=== PATIENT | female | born 1955 | race Caucasian/White ===

== ENCOUNTER 2017-05-12 20:28 | Emergency (ER) | payer MEDICARE | END 2017-05-12 23:13 | disposition home or self-care (01) | LOC: D.ER 20:28 | DX: J40 Bronchitis, not specified as acute or chronic (principal); H61.22 Impacted cerumen, left ear ==

== ENCOUNTER 2017-06-02 17:26 | Emergency (ER) | payer MEDICARE ==
[2017-06-02 18:47] LABS: ALBUMIN 3.3 g/dL (3.4-5.0); ALKALINE PHOSPHATASE 87 U/L (46-116); ALT (SGPT) 30 U/L (10-68); BILIRUBIN - TOTAL 0.25 mg/dL (0.2-1.3); CALC OSMOLALITY 280 mosm/kg (275-300); CALCIUM 9.3 mg/dL (8.5-10.1); CARBON DIOXIDE 26.1 mmol/L (21.0-32.0); CHLORIDE - SERUM 100 mmol/L (98-107); CREATININE - SERUM 0.8 mg/dL (0.6-1.3); GLUCOSE 281 mg/dL (74-106); POTASSIUM - SERUM 3.7 mmol/L (3.5-5.1); PROTEIN - SERUM 7.2 g/dL (6.4-8.2); SODIUM 135 mmol/L (136-145); UREA NITROGEN 16 mg/dL (7-18); eGFR NON AFRICAN AMERICAN 77 mL/min (90-120)
[2017-06-02 18:49] LABS: HEMATOCRIT 43.3 % (36.0-48.0); HEMOGLOBIN 15.2 g/dL (12-16); LYMPHOCYTES 42.3 % (15-50); MCH 30.3 pg (26.0-34.0); MCHC 35.1 g/dL (31.0-37.0); MCV 86.4 fL (80.0-100.0); NEUTROPHILS 53.8 % (40-80); PLATELET COUNT 280 10x3/uL (130-400); RBC 5.01 10x6/uL (4.00-5.40); RDW 13.2 % (11.5-14.5); WBC 8.1 10x3/uL (4.8-10.8)
[2017-06-02 19:10] LABS: INR 0.92 (0.85-1.17)
[2017-06-02 19:11] LABS: APTT 24.5 SECONDS (22.8-39.4)
== END 2017-06-02 20:52 | disposition home or self-care (01) ==
LOC: D.ER 17:26
PROVIDERS: Emergency Medicine
DX: E11.65 Type 2 diabetes mellitus with hyperglycemia (principal); F17.200 Nicotine dependence, unspecified, uncomplicated

== ENCOUNTER 2017-10-06 10:51 | Outpatient (CLI) | payer MEDICARE ==
[~2017-10-06] VITALS: Ht 152.4 cm; Wt 75.0 kg
--- NOTE | ~2017-10-06 | OP ---
PATIENT NAME: CRISTIANO THAYER MEDICAL RECORD: [id number] :53 LOCATION:D.CAT ADMISSION DATE: SURGEON: BALBIR CANALES MD DATE OF OPERATION: 10/06/2017 PROCEDURE: Left heart catheterization, selective coronary angiography, right radial approach. CATHETERS: A radial sheath, Maximino catheter. The procedure was well tolerated. The patient was returned to vazquez. Sheath was removed. TR band was placed. FINDINGS: Left ventriculography in 30-degree POWELL view: Normal wall motion and normal systolic function. CORONARY ANATOMY: LEFT MAIN: Left main is free of disease. LAD: Free of disease in diagonal system. CIRCUMFLEX: Free of disease in the marginal system. RIGHT CORONARY ARTERY: Dominant artery, gives rise to PDA, free of disease. IMPRESSION: Normal LV systolic function and normal coronary anatomy. TRANSINT:[id number] Voice Confirmation ID: [id number] DOCUMENT ID: [id number] BALBIR CANALES MD at 1225 CC: [id number] DICTATION DATE: 10/06/17 1338 ANODE WORKER: 10/06/17 1454 DEP CLI 10/06/17 [place] [id number] [place] [id number]
--- NOTE | ~2017-10-06 | HEMODYNAMI ---
PATIENT:CRISTIANO THAYER MEDICAL RECORD: [id number] : 53 LOCATION:[facility] ADMISSION DATE: 10/06/17 Generatedon:10/06/201713:36 Patient name: CRISTIANO THAYER Patient #: [id number] SSN: DO B: 1955 Date of study: 10/06/2017 Page: Of Hemodynamic Procedure Report Patient Data Patient Demographics Procedure consent was obtained First Name: CRISTIANO Gender: Female Last Name: JEOVANY : 1955 Middle Initial: CAMERON Age: 61 year(s) Patient #: [id number] Race: Unknown Additional ID: [id number] Contact details [address]: [address] [place] [address] [address] State: [place] [facility] [place]: [address] Past Medical History Allergies Allergen Reaction Date Comments Reported Sulfa drugs 10/06/2017 Codeine 10/06/2017 Admission Admission Data Admission Date: 10/06/2017 Admission Time: 10:51 Procedure Procedure Types Cath Procedure Diagnostic Procedure LHC LHC w/Coronaries Procedure Description Procedure Date Procedure Date: 10/06/2017 Procedure Start Time: 13:23 Procedure End Time: 13:35 Procedure Staff Name Function Brian Barrera MD Performing Physician Hawa Brantley RT Monitor Tiago Ferris RN Nurse Luis Alberto Meadows RT Scrub Procedure Data Cath Procedure Fluoroscopy Diagnostic fluoroscopy Total fluoroscopy Time: 0.8 time: 0.8 min min Diagnostic fluoroscopy Total fluoroscopy dose: 338 dose: 338 mGy mGy Contrast Material Contrast Material Type Amount (ml) Isovue 300 55 Entry Location Entry Primary Successful Side Size Upsize Upsize Entry Closure Succes sful Closure Location (Fr) 1 (Fr) 2 (Fr) Remarks Device Remarks Femoral Right 5 Fr Exoseal artery Estimated blood loss: 5 ml Diagnostic catheters Device Type Used For End Catheter Placement MULTIPACK JL 4.0 5Fr Left Coronary catheter Angiography MULTIPACK 3DRC 5Fr Right Coronary catheter Angiography MULTIPACK Pigtail 5 Fr LV Angiography catheter Procedure Complications No complications Procedure Medications Medication Administration Route Dosage 0.9% NaCl I.V. 100 ml/hr Oxygen etCO2 Nasal cannula 2 l/min Heparin Flush Bag added to field 2 bags (1000units/500ml NS) Lidocaine 2% added to field 20 Versed I.V. 2 mg Fentanyl I.V. 50 mcg Fentanyl I.V. 50 mcg Hemodynamics Rest Heart Rate: 71 (bpm) Pressure Samples Time Site Value (mmHg) Purpose Heart Use Rate(bpm) 13:29 LV 438/436,11 EDP 68 13:29 LV 122/-11,8 EDP 69 13:29 AO 121/59(84) Pullback 71 13:29 LV 124/11,46 Pullback 71 Gradients Valve Time Site 1 Site 2 Mean SEP/DFP Peak To Heart Use (mmHg) (sec/min) Peak Rate (mmHg) (bpm) Aortic 13:29 LV AO 4 19 3 71 124/11,46 121/59(84) Calculations Valve P-P Mean Valve Index Valve Source Name Gradient Area Flow (cm2) Aortic 3 4 3 4 Snapshots Pre Cath Intra NCS Post Cath Vital Signs Time Heart Resp SPO2 etCO2 NIBP (mmHg) Rhythm Pain Sedation Rate (ipm) (%) (mmHg) Status Level (bpm) 13:15:24 68 20 95 148/82(108) NSR 0 (11) 10(A) , No pain 13:20:05 62 20 97 36.7 117/75(105) NSR 0 (11) 10(A) , No pain 13:24:48 70 24 97 35.9 121/71(98) NSR 0 (11) 10(A) , No pain 13:29:31 69 19 94 38.9 114/68(86) NSR 0 (11) 10(A) , No pain 13:34:34 70 17 94 24.7 122/68(87) NSR 0 (11) 10(A) , No pain Medications Time Medication Route Dose Verified Delivered Reason Notes Eff ectiveness by by 13:18:56 0.9% NaCl I.V. 100 Stew Stew Per ml/hr Rajat Earl physician RN RN 13:19:08 Oxygen etCO2 2 Stew Stew Per Nasal l/min Rajat Earl physician cannula RN RN 13:19:23 Heparin Flush added 2 Stew Stew used for Bag to bags Lorigan Lorigan procedure (1000units/500ml field RN RN NS) 13:19:35 Lidocaine 2% added 20ml Stew Stew for local to vial Lorigan Lorigan anesthetic field RN RN 13:20:18 Versed I.V. 2 mg Stew Stew for Lorigan Lorigan sedation RN RN 13:20:27 Fentanyl I.V. 50 Stew Stew for mcg Lorigan Lorigan sedation RN RN 13:26:15 Fentanyl I.V. 50 Stew Stew for mcg Lorigan Lorigan sedation RN reimbursement coordinator Log Time Note 12:50:45 Luis Alberto Abdiel RT(R) sent for patient. Start room use. 12:50:46 Time tracking: Regular hours (M-F 7:00 - 5:00) 12:50:50 Plan of Care:Hemodynamics will remain stable., Cardiac rhythm will remain stable., Comfort level will be maintained., Respiratory function will remain adequate., Patient/ family verbilizes understanding of procedure., Procedure tolerated without complication., Recovers from procedure without complications.. 12:58:47 Patient received from Pre/Post Procedure Room to CCL 1 Alert and oriented. Tansferred to table in Supine position. 12:58:48 Warm blankets applied, and violeta hugger turned on for patient comfort. 12:58:49 Correct patient and procedure confirmed by team. 12:58:50 Signed procedure consent form obtained from patient. 12:58:51 ECG and BP/O2 sat monitors applied to patient. 12:58:52 Full Disclosure recording started 13:14:24 Vital chart was started 13:16:42 Baseline sample Acquired. 13:16:44 Rhythm: sinus rhythm 13:16:59 H&P Date Dictated: 10/04/2017 Within 30 days and on chart., H&P Addendum completed by physician on day of procedure. (MUST COMPLETE FOR ALL OUTPATIENTS). 13:17:00 Pre-procedure instructions explained to patient. 13:17:01 Pre-op teaching completed and patient verbalized understanding. 13:17:04 Family in patients room. 13:17:05 Patient NPO since Midnight. 13:17:12 Patient allergic to Sulfa drugs 13:17:16 Patient allergic to Codeine 13:17:18 Is the patient allergic to Iodine/contrast media? No. 13:17:20 Is patient on blood thinner?No 13:17:22 Patient diabetic? Yes. 13:17:22 If diabetic: On Metformin? Yes 13:17:25 If on Metformin: Last Dose? 10/04/2017 13:17:33 Previous problem with sedation/anesthesia? Yes Hypotension 13:17:35 Snore? Yes 13:17:36 Sleep apnea? No 13:17:37 Deviated septum? No 13:17:38 Opens mouth fully? Yes 13:17:39 Sticks out tongue? Yes 13:17:42 Airway obstruction? Yes COPD 13:17:45 Dentures? Yes In 13:17:48 Pre procedure: right dorsailis pedis pulse 1+ Palpable, but thready & weak; easily obliterated 13:17:50 Patient pain scale 0/10 ?. 13:17:56 IV patent on arrival in right hand with 0.9% NaCl at [facility]. 13:17:59 Lab results completed and on chart. 13:18:01 Right groin area was prepped with chlora-prep and draped in sterile fashion 13:18:03 Alarms reviewed by R. N. 13:18:03 Sharps counted by scrub and verified by R.N. 13:18:09 Use device set Femoral Dx 13:18:10 ACIST Syringe (73883) opened to sterile field. 13:18:10 Bag Decanter (2002S) opened to sterile field. 13:18:11 Medline Cath Pack ([id number]) opened to sterile field. 13:18:11 DIAGNOSTIC WIRE .035 260cm J wire (280013) opened to sterile field. 13:18:13 ACIST Hand Control (84498) opened to sterile field. 13:18:14 ACIST Manifold (70156) opened to sterile field. 13:18:14 DIAGNOSTIC Multipack 5Fr catheter set ([id number]) opened to sterile field. 13:18:16 Tegaderm 4 x 4 (1626W) opened to sterile field. 13:18:18 PERCUTANEOUS ENTRY 19GA needle opened to sterile field. 13:18:19 SHEATH Prelude 5Fr 0.035 ([id number]) opened to sterile field. 13:18:56 0.9% NaCl 100 ml/hr I.V. was administered by Stew Earl RN; Per physician; 13:19:08 Oxygen 2 l/min etCO2 Nasal cannula was administered by Stew Earl RN; Per physician; 13:19:23 Heparin Flush Bag (1000units/500ml NS) 2 bags added to field was administered by Stew Earl RN; used for procedure; 13:19:35 Lidocaine 2% 20ml vial added to field was administered by Stew Earl RN; for local anesthetic; 13:19:55 Final Timeout: patient, procedure, and site verified with staff and physician. All members of the team are in agreement. 13:19:57 Right groin site verified by team. 13:20:00 Physical assessment completed. ASA score P 2 - A patient with mild systemic disease as per Brian Barrera MD. 13:20:02 Sedation plan: IV Moderate Sedation Medication:Versed, Fentanyl 13::18 Versed 2 mg I.V. was administered by Stew Earl RN; for sedation; 13::27 Fentanyl 50 mcg I.V. was administered by Stew Earl RN; for sedation; 13::51 Procedure started. 13::53 Zero performed for pressure channel P1 13::56 Zero performed for pressure channel P1 13:23:04 Local anesthetic to right femoral artery with Lidocaine 2% by Brian Barrera MD.INITIAL ACCESS ONLY 13:24:11 A 5 Fr sheath was inserted into the Right Femoral artery 13:24:44 A MULTIPACK JL 4.0 5Fr catheter was advanced over the wire and used for Left Coronary Angiography. 13:26:15 Fentanyl 50 mcg I.V. was administered by Stew Earl RN; for sedation; 13:26:40 Catheter removed. 13:27:31 A MULTIPACK 3DRC 5Fr catheter was advanced over the wire and used for Right Coronary Angiography. 13::44 Catheter removed. 13::51 A MULTIPACK Pigtail 5 Fr catheter was advanced over the wire and used for LV Angiography. 13:29:48 LV gram done using POWELL 13::50 LV hemodynamics recorded. 13::53 Injector settings: Ml/sec: 10, Volume: 20, 13:29:58 Catheter removed. 13:30:05 Sheath removed intact; hemostasis achieved with Exoseal to the Right Femoral artery. 13:30:07 Procedure ended.(Physican Out) 13:30:17 EXOSEAL 5Fr (EX500) opened to sterile field. 13:30:37 Fluoroscopy time 00.80 minutes. 13:30:41 Fluoroscopy dose: 338 mGy 13:30:41 Flurop Dose total: 338 13:30:45 Contrast amount:Isovue 300 55ml. 13:30:46 Sharps counted by scrub and verified by R.N. 13:30:47 Insertion/operative site no bleeding no hematoma. 13:30:49 Post-op/insertion site Right Femoral artery dressed using a 4 x 4 and Tegaderm. 13:30:52 Post right femoral artery:stable, clean and dry 13:30:54 Post Procedure Pulses reassessed and unchanged 13:30:56 Post-procedure physical assessment completed. ASA score P 2 - A patient with mild systemic disease as per Brian Barerra MD. 13:30:58 Post procedure rhythm: unchanged. 13:31:01 Estimated blood loss: 5 ml 13:31:03 Post procedure instruction explained to patient.Patient verbalizes understanding. 13:31:03 Patient needs reinforcement of post procedure teaching. 13:31:21 Procedure Complication : No complications 13:31:24 See physician's report for complete and final results. 13:32:26 Procedure and supply charges have been captured, reviewed, submitted and are correct. 13:34:56 Vital chart was stopped 13:34:58 Report given to Pre/Post Procedure Room. 13:35:00 Patient transfered to Pre/Post Procedure Room with Stretcher. 13:35:02 Procedure ended. 13:35:02 Full Disclosure recording stopped 13:35:09 End room use (Document Last) Device Usage Item Name Manufacture Quantity Catalog Number Hospital Part Current M inimal Lot# / Charge Number Stock Stock Serial# Code ACIST Syringe Acist 1 85080 209643 127318 925967 2 0 (69216) [employer] Bag Decanter Microtek 1 411625 23316 484864 5 () [employer] Medline Cath Cardinal 1 [id number] 865986 62586 094765 5 [employer] [facility] ([id number]) DIAGNOSTIC WIRE St Veto 1 576184 739131 738071 111938 3 0 .035 260cm J wire (247638) ACIST Hand Acist 1 99906 994029 159370 275424 5 Control (08115) [employer] ACIST Manifold Acist 1 65217 126836 325027 705648 5 (11581) [employer] DIAGNOSTIC Cardinal 1 [id number] 633869 82808 824745 3 0 Multipack 5Fr Health catheter set ([id number]) Tegaderm 4 x 4 3M 1 1626W 427371 123266 917381 5 (1626W) PERCUTANEOUS [employer] 1 [id number] 067456 749215 5 ENTRY 19GA needle SHEATH Prelude Merit 1 [id number] 347055 708613 983980 5 5Fr 0.035 Medical ([id number]) MULTIPACK JL Cardinal 1 020681 5 4.0 5Fr Health catheter MULTIPACK 3DRC Cardinal 1 508280 5 5Fr catheter Health MULTIPACK Cardinal 1 563285 5 Pigtail 5 Fr Health catheter EXOSEAL 5Fr Cardinal 1 EX500 770092 509993 129725 1 0 (EX500) Health Signature Audit [place] Stage Time Signature Unsigned Intra-Procedure 10/06/2017 Hawa 1:36:25 PM Counts RT(R) Signatures Monitor : Hawa Signature : Counts RT Date : Time : [address] [address]
[2017-10-06] MEDS ORDERED: ALDACTONE25 MG PO (11:25)
[2017-10-06] MEDS ORDERED: GLUCOTROL ER2.5 MG PO (11:26)
[2017-10-06] MEDS ORDERED: LEVOTHYROXINE100 MCG PO (11:26)
[2017-10-06] MEDS ORDERED: ZOCOR20 MG PO (11:26)
[2017-10-06] MEDS ORDERED: GEMFIBROZIL600 MG PO (11:27)
[2017-10-06] MEDS ORDERED: GLUCOPHAGE1000 MG PO (11:27)
[2017-10-06] MEDS ORDERED: VENTOLIN HFA18 GM INH (11:27)
[2017-10-06 11:36] VITALS: BP 123/72; Ht 152.4 cm; Wt 75.0 kg
[2017-10-06 12:50] LABS: BASOPHILS 0.2 % (0-2); EOSINOPHILS 1.9 % (0-7); HEMOGLOBIN 15.4 g/dL (12-16); IMMATURE GRANULOCYTES 0.2 % (0-5); LYMPHOCYTES 34.4 % (15-50); MCH 30.7 pg (26.0-34.0); MCHC 34.2 g/dL (31.0-37.0); MCV 89.8 fL (80.0-100.0); MEAN PLATELET VOLUME 10.6 fL (7.4-10.4); MONOCYTES 5.2 % (2-11); NEUTROPHILS 58.1 % (40-80); PLATELET COUNT 292 10x3/uL (130-400); RBC 5.01 10x6/uL (4.00-5.40); RDW 13.9 % (11.5-14.5); WBC 9.7 10x3/uL (4.8-10.8)
[2017-10-06 13:01] LABS: CALC OSMOLALITY 282 mosm/kg (275-300); CALCIUM 9.9 mg/dL (8.5-10.1); CARBON DIOXIDE 28.9 mmol/L (21.0-32.0); CHLORIDE - SERUM 105 mmol/L (98-107); CREATININE - SERUM 0.7 mg/dL (0.6-1.3); POTASSIUM - SERUM 3.9 mmol/L (3.5-5.1); SODIUM 140 mmol/L (136-145); UREA NITROGEN 16 mg/dL (7-18); eGFR NON AFRICAN AMERICAN 90 mL/min (90-120)
[2017-10-06 13:02] LABS: GLUCOSE 153 mg/dL (74-106)
== END 2017-10-06 15:50 | disposition home or self-care (01) ==
LOC: D.CATH 10:51
PROVIDERS: Internal Medicine Interventional Cardiology
DX: I20.9 Angina pectoris, unspecified (principal); R06.00 Dyspnea, unspecified; Z01.812 Encounter for preprocedural laboratory examination

== ENCOUNTER → 2017-11-23 10:14 | Outpatient (CLI) | payer MEDICARE ==
[2017-10-06 11:36] VITALS: BMI 32.2
[~2017-11-23 10:14] MED LIST: ALDACTONE25 MG PO; GEMFIBROZIL600 MG PO; GLUCOPHAGE1000 MG PO; GLUCOTROL ER2.5 MG PO; LEVOTHYROXINE100 MCG PO; VENTOLIN HFA18 GM INH; ZOCOR20 MG PO
== END | disposition home or self-care (01) ==
LOC: D.CT 10:14
DX: R04.2 Hemoptysis (principal)